=== PATIENT | male | born 1955 | race African-American/Black ===

== ENCOUNTER 2016-10-24 14:41 | Inpatient (IN) | payer OTHER ==
[2016-10-24 17:46] VITALS: BMI 33.7
--- NOTE | 2016-10-24 20:22 | HP ---
COWS - Scale Resting Pulse: 1= [place] 81-100 Sweatin= Chills/Flushing Restless Observation: 1= Difficult to Sit Still Pupil Size: 0= Normal to Room Light Bone or Joint Aches: 2= Severe Diffuse Aches Runny Nose/ Eye Tearin= Runny Nose/Eyes GI Upset > 30mins: 2= Nausea/Diarrhea Tremor Observation: 2= Slight Tremor Visible Yawning Observation: 1= 1-2x During Session Anxiety or Irritability: 2=Irritable/Anxious Goose Flesh Skin: 3=Piloerection COWS Score: 17 CIWA Score - CIWA Score Nausea/Vomitin Muscle Tremors: 2 Anxiety: 3 Agitation: 3 Paroxysmal Sweats: 3 Orientation: 0-Oriented Tacttile Disturbances: 1-Very Mild Itch/Numbness Auditory Disturbances: 0-None Visual Disturbances: 0-None Headache: 2-Mild CIWA-Ar Total Score: 16 Admission ROS BHS - HPI Chief Complaint: WITHDRAWAL SYMPTOMS Allergies/Adverse Reactions: Allergies Allergy/AdvReac Type Severity Reaction Status Date / Time No Known Allergies Allergy Verified 10/24/16 20:22 History of Present Illness: 61 Y.O. MAN WITH AN EXTENSIVE HISTORY OF DRUG AND ALCOHOL DEPENDENCE IS SEEKING DETOX. HE REPORTS NOT HAVING A SIGNIFICANT PERIOD OF SOBRIETY AND IS CURRENTLY ATTENDING AN OUTPATIENT METHADONE MAINTENANCE TREATMENT PROGRAM. Exam Limitations: No Limitations - Ebola screening Have you traveled outside of the country in the last 21 days: No Have you been sick,other than usual withdrawal symptoms: No - Review of Systems Constitutional: Chills, Diaphoresis, Loss of Appetite, Malaise, Night Sweats, Unintentional Wgt. Loss EENT: reports: Blurred Vision, Double Vision, Tearing, Nose Congestion Respiratory: reports: No Symptoms reported Cardiac: reports: No Symptoms Reported GI: reports: Diarrhea, Nausea, Poor Appetite, Abdominal cramping : reports: No Symptoms Reported Musculoskeletal: reports: No Symptoms Reported Integumentary: reports: No Symptoms Reported Neuro: reports: Tremors Endocrine: reports: No Symptoms Reported Hematology: reports: No Symptoms Reported Psychiatric: reports: Orientated x3, Anxious Other Systems: Reviewed and Negative Patient History - Patient Medical History Hx Anemia: No Hx Asthma: No Hx Chronic Obstructive Pulmonary Disease (COPD): No Hx Cancer: No Hx Cardiac Disorders: No Hx Congestive Heart Failure: No Hx Hypertension: Yes (NOT TAKING MEDS ) Hx Hypercholesterolemia: No Hx Pacemaker: No HX Cerebrovascular Accident: No Hx Seizures: No Hx Dementia: No Hx Diabetes: No Hx Gastrointestinal Disorders: No Hx Liver Disease: No Hx Genitourinary Disorders: No Hx Sexually Transmitted Disorders: No Hx Renal Disease (ESRD): No Hx Thyroid Disease: No Hx Human Immunodeficiency Virus (HIV): No Hx Hepatitis C: No Hx Depression: No Hx Suicide Attempt: No Hx Bipolar Disorder: No Hx Schizophrenia: No - Patient Surgical History Past Surgical History: Yes Hx Orthopedic Surgery: Yes (FX REPAIR OF LEFT FEMUR-1986) Anesthesia Reaction: No - PPD History Previous Implant?: No Results: NEEDS CXR PPD to be Administered?: No - Reproductive History Patient is a Female of Child Bearing Age (11 -55 yrs old): No - Smoking Cessation Smoking history: Current every day smoker Aproximately how many cigarettes per day: 10 Hx Chewing Tobacco Use: No Initiated information on smoking cessation: Yes 'Breaking Loose' booklet given: 10/24/16 - Substance & Tx. History Hx Alcohol Use: Yes Hx Substance Use: Yes Substance Use Type: Alcohol, Cocaine, Heroin Hx Substance Use Treatment: Yes (DETOX AND REHAB ) - Substances Abused Alcohol Route: Oral Frequency: Daily Amount used: 1-2 PINTS OF LIQUOR Age of first use: 42 Date of Last Use: 10/24/16 Heroin Route: Injection Frequency: Daily Amount used: $70 Age of first use: 35 Date of Last Use: 10/23/16 Cocaine Route: Smoking Frequency: 3-6 times per week Amount used: $100 Age of first use: 47 Date of Last Use: 10/23/16 Family Disease History - Family Disease History Family Disease History: Heart Disease: Mother (), CA: Father ( ) , Mother Admission Physical Exam [facility] - Vital Signs Vital Signs: Vital Signs - 24 hr 10/24/16 17:43 Temperature 98.3 F Pulse Rate 82 Respiratory 20 Rate Blood Pressure 151/97 - Physical General Appearance: Yes: Irritable, Sweating, Anxious HEENTM: Yes: Nasal Congestion Respiratory: Yes: Chest Non-Tender, Lungs Clear, Normal Breath Sounds, No Respiratory Distress, No Accessory Muscle Use Neck: Yes: No masses,lesions,Nodules, Trachea in good position Breast: Yes: Breast Exam Deferred Cardiology: Yes: Regular Rhythm, Regular Rate, S1, S2 Abdominal: Yes: Normal Bowel Sounds, Non Tender, Flat, Soft Genitourinary: Yes: Other (NO COMPLAINTS REPORTED) Back: Yes: Normal Inspection Musculoskeletal: Yes: full range of Motion, Gait Steady Extremities: Yes: Tremors Neurological: Yes: Fully Oriented, Alert Integumentary: Yes: Track Sanchez (RIGHT ARM) Lymphatic: Yes: Within Normal Limits - Diagnostic (1) Alcohol dependence with uncomplicated withdrawal Current Visit: Yes Status: Chronic (2) Opioid dependence on agonist therapy Current Visit: Yes Status: Chronic (3) Cocaine dependence, uncomplicated Current Visit: Yes Status: Chronic (4) Nicotine dependence Current Visit: Yes Status: Chronic (5) History of tuberculosis exposure Current Visit: Yes Status: Resolved Comment: REPORTS BEING TREATED WITH INH IN 1977. Cleared for Admission [facility] - Detox or Rehab [facility] Level of Care: Medically Managed Detox Regimen/Protocol: Librium [facility] Breath Alcohol Content Breath Alcohol Content: 0.006 Urine Drug Screen - Results Urine Drug Screen Results: THOMAS-Cocaine, OPI-Opiates, MTD-Methadone
[2016-10-24] MEDS ORDERED: NICOTINE POLACRILEX 2 MG GUM BC PRN (21:03)
[2016-10-24] MEDS ORDERED: MAGNESIUM CITRATE 300 ML BOTTLE PO PRN (21:03)
[2016-10-24] MEDS ORDERED: chlordiazePOXIDE HCL 25 MG CAPSULE PO ONE (21:03)
[2016-10-24] MEDS ORDERED: LOPERAMIDE HCL 2 MG CAPSULE PO PRN (21:03)
[2016-10-24] MEDS ORDERED: hydrOXYzine PAMOATE 50 MG CAPSULE (FP) PO PRN (21:03)
[2016-10-24] MEDS ORDERED: MENTHOL/PHENOL 1 EACH UD MM PRN (21:03)
[2016-10-24] MEDS ORDERED: guaiFENesin/D-METHORPHAN HB 10 ML UNIT-DOSE CUPS PO PRN (21:03)
[2016-10-24] MEDS ORDERED: ACETAMINOPHEN 325 MG TABLET (FP) PO PRN (21:03)
[2016-10-24] MEDS ORDERED: MAGNESIUM HYDROX 2400MG/30ML ORAL SUSPENSION 30 ML CUP PO PRN (21:03)
[2016-10-24] MEDS ORDERED: MAG HYDROX/AL HYDROX/SIMETH 30 ML UNIT-DOSE CUP PO PRN (21:03)
[2016-10-24] MEDS ORDERED: chlordiazePOXIDE HCL 25 MG CAPSULE PO PRN (21:03)
[2016-10-24] MEDS ORDERED: P-EPHED 60MG/TRIPROLIDI 2.5MG TABLET PO PRN (21:03)
[2016-10-24] MEDS ORDERED: diphenhydrAMINE HCL 50 MG CAPSULE PO PRN (21:03)
[2016-10-24] MEDS: THIAMINE HCL 100 MG TABLET (FP) PO SCH (22:55)
[2016-10-24] MEDS: chlordiazePOXIDE HCL 25 MG CAPSULE PO SCH (23:01)
[2016-10-24 23:06] LABS: URINE APPEARANCE CLEAR; URINE BILIRUBIN NEGATIVE (NEGATIVE); URINE BLOOD NEGATIVE (NEGATIVE); URINE COLOR YELLOW; URINE GLUCOSE (UA) NEGATIVE (NEGATIVE); URINE KETONE TRACE (NEGATIVE); URINE LEUK ESTERASE NEGATIVE (NEGATIVE); URINE NITRITE NEGATIVE (NEGATIVE); URINE PROTEIN TRACE (NEGATIVE); URINE UROBILINOGEN 0.2 E.U/dl E.U./dl (0.2-1.0)
[2016-10-25] MEDS: chlordiazePOXIDE HCL 25 MG CAPSULE PO SCH ×4 (05:29→22:11)
[2016-10-25] MEDS ORDERED: METHADONE HCL 40 MG DISPERSABLE TABLET PO ONE (08:26)
--- NOTE | 2016-10-25 09:54 | PN ---
[facility] CIWA - CIWA Score Nausea/Vomitin Muscle Tremors: 3 Anxiety: 3 Agitation: 3 Paroxysmal Sweats: 3 Orientation: 0-Oriented Tacttile Disturbances: 2-Mild Itch/Numbness/Burn Auditory Disturbances: 0-None Visual Disturbances: 0-None Headache: 0-None Present CIWA-Ar Total Score: 16 BHS COWS - Scale Resting Pulse: 0= [place] 80 or Below Sweatin=Flushed/Facial Moisture Restless Observation: 1= Difficult to Sit Still Pupil Size: 1= Pupils >than Normal Bone or Joint Aches: 2= Severe Diffuse Aches Runny Nose/ Eye Tearin= Nasal Congestion GI Upset > 30mins: 1= Stomach Cramp Tremor Observation of Outstretched Hands: 1= Tremor [place], Not Seen Yawning Observation: 1= 1-2x During Session Anxiety or Irritability: 2=Irritable/Anxious Goose Flesh Skin: 0=Smooth Skin COWS Score: 12 S Progress Note (SOAP) Subjective: sweats , shakes bodyaches , lbp Objective: 10/25/16 09:53 Vital Signs Temperature 96.7 F L 10/25/16 05:54 Pulse Rate 79 10/25/16 05:54 Respiratory Rate 18 10/25/16 05:54 Blood Pressure 123/79 10/25/16 05:54 O2 Sat by Pulse Oximetry (%) Laboratory Tests 10/24/16 22:21 Urine Color Yellow Urine Appearance Clear Urine pH 6.0 Ur Specific [place] >= 1.030 Urine Protein Trace H Urine Glucose (UA) Negative Urine Ketones Trace H Urine Blood Negative Urine Nitrite Negative Urine Bilirubin Negative Urine Urobilinogen 0.2 e.u/dl Ur Leukocyte Esterase Negative pending labs Assessment: 10/25/16 09:53 withdrawl sx's Plan: cont. detox increase fluids motrin prn
[2016-10-25 10:12] LABS: MCH 26.5 pg (25.7-33.7); MCHC 32.5 g/dl (32.0-35.9); MEAN CELL VOLUME 81.5 fl (80-96); MEAN PLT VOLUME 7.9 fl (7.5-11.1); PLATELET COUNT 174 K/MM3 (134-434); WHITE BLOOD COUNT 4.8 K/mm3 (4.0-10.0)
[2016-10-25 10:26] LABS: SGOT/AST 15 U/L (15-37); SGPT/ALT 15 U/L (12-78)
[2016-10-25 10:30] LABS: ALBUMIN 2.9 g/dl (3.4-5.0); ALK PHOS 94 U/L (45-117); ANION GAP 5 (8-16); BILIRUBIN,TOTAL 0.3 mg/dL (0.2-1.0); CALCIUM 8.4 mg/dL (8.5-10.1); CO2 29 mmol/L (21-32); GLUCOSE,RANDOM 95 mg/dL (74-106)
[2016-10-25] MEDS: NICOTINE 14 MG/24 HOURS TOPICAL PATCH TD SCH (10:58)
[2016-10-25] MEDS: PRENATAL VITAMINS W/ FOLIC ACID TABLET (FP) PO SCH (10:59)
--- NOTE | 2016-10-25 16:34 | EKG ---
Test Reason : Blood Pressure : / mmHG Vent. Rate : 079 BPM Atrial Rate : 079 BPM P-R Int : 164 ms QRS Dur : 086 ms QT Int : 396 ms P-R-T Axes : 071 055 024 degrees QTc Int : 454 ms NORMAL SINUS RHYTHM NONSPECIFIC T WAVE ABNORMALITY ABNORMAL ECG NO PREVIOUS ECGS AVAILABLE Confirmed by ARI MCCRAY, ALVARO ([id number]) on 10/25/2016 4:33:55 PM Referred By: Israel Jeffrey Confirmed By:ALVARO CHAPMAN MD
[2016-10-25] MEDS: THIAMINE HCL 100 MG TABLET (FP) PO SCH (22:11)
[2016-10-26] MEDS: chlordiazePOXIDE HCL 25 MG CAPSULE PO SCH ×3 (05:52→17:55)
[2016-10-26] MEDS: IBUPROFEN 400 MG TABLET (FP) PO PRN (05:54)
[2016-10-26] MEDS ORDERED: METHADONE HCL 40 MG DISPERSABLE TABLET PO ONE (09:34)
[2016-10-26] MEDS: PRENATAL VITAMINS W/ FOLIC ACID TABLET (FP) PO SCH (10:13)
[2016-10-26] MEDS: NICOTINE 14 MG/24 HOURS TOPICAL PATCH TD SCH (10:14)
--- NOTE | 2016-10-26 11:20 | PN ---
S CIWA - CIWA Score Nausea/Vomitin Muscle Tremors: 3 Anxiety: 2 Agitation: 2 Paroxysmal Sweats: 1-Minimal Palms Moist Orientation: 0-Oriented Tacttile Disturbances: 1-Very Mild Itch/Numbness Auditory Disturbances: 1-Very Mild Visual Disturbances: 1-Very Mild Sensitivity Headache: 2-Mild CIWA-Ar Total Score: 16 S Progress Note (SOAP) Subjective: ALERT,IRRITABLE,ANXIOUS,INTERRUPTED SLEEP Objective: 10/26/16 11:18 Vital Signs Temperature 98.2 F 10/26/16 10:06 Pulse Rate 77 10/26/16 10:06 Respiratory Rate 18 10/26/16 10:06 Blood Pressure 155/97 10/26/16 10:06 O2 Sat by Pulse Oximetry (%) 10/26/16 11:18 Laboratory Last Values WBC 4.8 K/mm3 (4.0-10.0) 10/25/16 06:30 RBC 4.84 M/mm3 (4.00-5.60) 10/25/16 06:30 Hgb 12.8 GM/dL (11.7-16.9) 10/25/16 06:30 Hct 39.5 % (35.4-49) 10/25/16 06:30 MCV 81.5 fl (80-96) 10/25/16 06:30 MCHC 32.5 g/dl (32.0-35.9) 10/25/16 06:30 RDW 15.0 % (11.9-15.9) 10/25/16 06:30 Plt Count 174 K/MM3 (134-434) 10/25/16 06:30 MPV 7.9 fl (7.5-11.1) 10/25/16 06:30 Sodium 141 mmol/L (136-145) 10/25/16 06:30 Potassium 3.8 mmol/L (3.5-5.1) 10/25/16 06:30 Chloride 107 mmol/L (98-107) 10/25/16 06:30 Carbon Dioxide 29 mmol/L (21-32) 10/25/16 06:30 Anion Gap 5 (8-16) L 10/25/16 06:30 BUN 14 mg/dL (7-18) 10/25/16 06:30 Creatinine 1.0 mg/dL (0.7-1.3) 10/25/16 06:30 Creat Clearance w eGFR > 60 (>60) 10/25/16 06:30 Random Glucose 95 mg/dL (74-106) 10/25/16 06:30 Calcium 8.4 mg/dL (8.5-10.1) L 10/25/16 06:30 Total Bilirubin 0.3 mg/dL (0.2-1.0) 10/25/16 06:30 AST 15 U/L (15-37) 10/25/16 06:30 ALT 15 U/L (12-78) 10/25/16 06:30 Alkaline Phosphatase 94 U/L (45-117) 10/25/16 06:30 Total Protein 7.0 g/dl (6.4-8.2) 10/25/16 06:30 Albumin 2.9 g/dl (3.4-5.0) L 10/25/16 06:30 Urine Color Yellow 10/24/16 22:21 Urine Appearance Clear 10/24/16 22:21 Urine pH 6.0 (5.0-8.0) 10/24/16 22:21 Ur Specific [place] >= 1.030 (1.001-1.035) 10/24/16 22:21 Urine Protein Trace (NEGATIVE) H 10/24/16 22:21 Urine Glucose (UA) Negative (NEGATIVE) 10/24/16 22:21 Urine Ketones Trace (NEGATIVE) H 10/24/16 22:21 Urine Blood Negative (NEGATIVE) 10/24/16 22:21 Urine Nitrite Negative (NEGATIVE) 10/24/16 22:21 Urine Bilirubin Negative (NEGATIVE) 10/24/16 22:21 Urine Urobilinogen 0.2 e.u/dl E.U./dl (0.2-1.0) 10/24/16 22:21 Ur Leukocyte Esterase Negative (NEGATIVE) 10/24/16 22:21 RPR Titer Nonreactive (NONREACTIVE) 10/25/16 06:30 Assessment: 10/26/16 11:19 WITHDRAWAL SYMPTOM Plan: CONTINUE DETOX
[2016-10-26] MEDS: chlordiazePOXIDE 5 MG CAPSULE PO SCH (22:39)
[2016-10-26] MEDS: THIAMINE HCL 100 MG TABLET (FP) PO SCH (22:39)
[2016-10-27] MEDS: chlordiazePOXIDE 5 MG CAPSULE PO SCH ×3 (05:56→18:22)
[2016-10-27] MEDS: METHADONE HCL 40 MG DISPERSABLE TABLET PO SCH (05:58)
[2016-10-27] MEDS ORDERED: METHADONE HCL 40 MG DISPERSABLE TABLET PO ONE (06:47)
[2016-10-27] MEDS: NICOTINE 14 MG/24 HOURS TOPICAL PATCH TD SCH (11:30)
[2016-10-27] MEDS: PRENATAL VITAMINS W/ FOLIC ACID TABLET (FP) PO SCH (11:30)
--- NOTE | 2016-10-27 12:20 | PN ---
S Progress Note (SOAP) Subjective: ALERT,IRRITABLE,ANXIOUS,INTERRUPTED SLEEP Objective: 10/27/16 12:20 Vital Signs Temperature 97.9 F 10/27/16 10:27 Pulse Rate 85 10/27/16 10:27 Respiratory Rate 18 10/27/16 10:27 Blood Pressure 159/94 10/27/16 10:27 O2 Sat by Pulse Oximetry (%) Assessment: 10/27/16 12:20 WITHDRAWAL SYMPTOM Plan: CONTINUE DETOX
[2016-10-27] MEDS: THIAMINE HCL 100 MG TABLET (FP) PO SCH (22:34)
[2016-10-27] MEDS: chlordiazePOXIDE HCL 10 MG CAPSULE PO SCH (22:34)
[2016-10-27] MEDS: IBUPROFEN 400 MG TABLET (FP) PO PRN (22:36)
[2016-10-28] MEDS: METHADONE HCL 40 MG DISPERSABLE TABLET PO SCH (06:04)
[2016-10-28] MEDS: chlordiazePOXIDE HCL 10 MG CAPSULE PO SCH (06:06)
[2016-10-28 07:09] VITALS: BP 143/96; PULSE 77; TEMP 97.9
--- NOTE | 2016-10-28 09:14 | PN ---
S Progress Note (SOAP) Subjective: ALERT,NO COMPLAINT Objective: 10/28/16 09:13 Vital Signs Temperature 97.9 F 10/28/16 06:00 Pulse Rate 77 10/28/16 06:00 Respiratory Rate 18 10/28/16 06:00 Blood Pressure 143/96 10/28/16 06:00 O2 Sat by Pulse Oximetry (%) Assessment: 10/28/16 09:13 DETOX COMPLETED,NO WITHDRAWAL SYMPTOM Plan: DISCHARGE TODAY,FOLLOW UP WITH AFTER CARE PROGRAM ARRANGEMENT
--- NOTE | 2016-10-28 09:16 | DS ---
[facility] Detox Discharge Summary Admission Date: 10/24/16 Discharge Date: 10/28/16 - History Present History: Alcohol Dependence, Cocaine Dependence, MMTP Additional Comments: FOLLOW UP WITH AFTER CARE PROGRAM ARRANGEMENT Pertinent Past History: NICOTINE DEPENDENCE POSITIVE PPD - Physical Exam Results Vital Signs: Vital Signs Temperature 97.9 F 10/28/16 06:00 Pulse Rate 77 10/28/16 06:00 Respiratory Rate 18 10/28/16 06:00 Blood Pressure 143/96 10/28/16 06:00 O2 Sat by Pulse Oximetry (%) Pertinent Admission Physical Exam Findings: WITHDRAWAL SYMPTOM - Treatment Hospital Course: Detox Protocol Followed, Detoxed Safely, Responded well, Discharged Condition Good Patient has Accepted a Rehab Referral to: DECLINED - Medication Discharge Medications: Ambulatory Orders NK [No Known Home Medication] 10/24/16 - AMA Did Patient Leave Against Medical Advice: No
== END 2016-10-28 10:10 | disposition home or self-care (01) | DRG 773 ==
LOC: YASAS 14:41 → Y6N 20:06
PROVIDERS: ADMIT Internal Medicine Addiction Medicine; ATTEND Internal Medicine Addiction Medicine
PROC: HZ2ZZZZ Detoxification Services for Substance Abuse Treatment (ICD-10-PCS; principal; 2016-10-24)
DX: F10.230 Alcohol dependence with withdrawal, uncomplicated (principal); F11.23 Opioid dependence with withdrawal; F14.20 Cocaine dependence, uncomplicated; F17.210 Nicotine dependence, cigarettes, uncomplicated; I10 Essential (primary) hypertension; R76.11 Nonspecific reaction to tuberculin skin test without active tuberculosis
CPT/HCPCS: 36415; 71020-TC; 80053; 81003; 85027; 86593; 93005; 93010

== ENCOUNTER 2021-03-08 15:06 | Inpatient (IN) | payer OTHER ==
[2021-03-08 16:21] VITALS: BMI 36.9
[2021-03-08] MEDS ORDERED: MAG HYDROX/AL HYDROX/SIMETH 30 ML UNIT-DOSE CUP PO PRN (18:57)
[2021-03-08] MEDS ORDERED: LORazepam 1 MG TABLET PO PRN (18:57)
[2021-03-08] MEDS ORDERED: MENTHOL/PHENOL 1 EACH UD MM PRN (18:57)
[2021-03-08] MEDS ORDERED: BISMUTH SUBSALICYLATE 524 MG/30 ML PO PRN (18:57)
[2021-03-08] MEDS ORDERED: ONDANSETRON *ODT* 4 MG TABLET SL PRN (18:57)
[2021-03-08] MEDS ORDERED: hydrOXYzine PAMOATE 25 MG CAPSULE (FP) PO PRN (18:57)
[2021-03-08] MEDS ORDERED: MAGNESIUM CITRATE 300 ML BOTTLE PO PRN (18:57)
[2021-03-08] MEDS ORDERED: ACETAMINOPHEN 325 MG TABLET (FP) PO PRN ×2 (18:57)
[2021-03-08] MEDS ORDERED: NICOTINE POLACRILEX 2 MG GUM BUC PRN (18:57)
[2021-03-08] MEDS ORDERED: METHOCARBAMOL 500 MG TABLET PO PRN (18:57)
[2021-03-08] MEDS ORDERED: IBUPROFEN 400 MG TABLET (FP) PO PRN (18:57)
[2021-03-08] MEDS ORDERED: MAGNESIUM HYDROX 2400MG/30ML ORAL SUSPENSION 30 ML CUP PO PRN (18:57)
[2021-03-08] MEDS: CLOTRIMAZOLE 1% CREAM 15 GM TUBE TP SCH (22:18)
[2021-03-08] MEDS: LORazepam 2 MG TABLET PO SCH (22:18)
[2021-03-08] MEDS: THIAMINE HCL 100 MG TABLET (FP) PO SCH (22:18)
[2021-03-08] MEDS: MELATONIN 5 MG TABLETS PO SCH (22:18)
[2021-03-09] MEDS: LORazepam 2 MG TABLET PO SCH ×4 (06:44→22:35)
[2021-03-09] MEDS ORDERED: METHADONE HCL 10 MG TABLET PO ONE (08:44)
[2021-03-09] MEDS ORDERED: METHADONE 120 MG, METHADONE 30 MG PO ONE (08:50)
[2021-03-09] MEDS ORDERED: METHADONE HCL 10 MG TABLET ONE (08:54)
[2021-03-09] MEDS ORDERED: METHADONE HCL 40 MG DISPERSABLE TABLET ONE (08:54)
[2021-03-09 10:01] LABS: CALCIUM 8.1 mg/dL (8.5-10.1); HEMATOCRIT 39.4 % (35.4-49); HEMOGLOBIN 12.9 GM/dL (11.7-16.9); MCH 27.7 pg (25.7-33.7); MCHC 32.9 g/dl (32.0-35.9); MEAN CELL VOLUME 84.3 fl (80-96); MEAN PLT VOLUME 8.2 fl (7.5-11.1); PLATELET COUNT 172 K/MM3 (134-434); RBC 4.68 M/mm3 (4.00-5.60); RDW 15.8 % (11.9-15.9); WHITE BLOOD COUNT 3.6 K/mm3 (4.0-10.0)
[2021-03-09 10:02] LABS: ALBUMIN 3.2 g/dl (3.4-5.0); BLOOD UREA NITROGEN 19.7 mg/dL (7-18)
[2021-03-09 10:07] LABS: BILIRUBIN,TOTAL 0.3 mg/dL (0.2-1); TOT PROT 7.6 g/dl (6.4-8.2)
[2021-03-09] MEDS: CLOTRIMAZOLE 1% CREAM 15 GM TUBE TP SCH ×2 (12:25→22:33)
[2021-03-09] MEDS: NICOTINE 14 MG/24 HOURS TOPICAL PATCH TD SCH (12:25)
[2021-03-09] MEDS: PRENATAL VITAMINS W/ FOLIC ACID TABLET (FP) PO SCH (12:26)
[2021-03-09] MEDS ORDERED: MASKS NR ONE (12:30)
[2021-03-09] MEDS ORDERED: cloNIDine HCL 0.1 MG TABLET PO ONE (14:01)
[2021-03-09] MEDS: THIAMINE HCL 100 MG TABLET (FP) PO SCH (22:34)
[2021-03-09] MEDS: MELATONIN 5 MG TABLETS PO SCH (22:34)
[2021-03-10] MEDS ORDERED: METHADONE HCL 40 MG DISPERSABLE TABLET ONE (04:39)
[2021-03-10] MEDS ORDERED: METHADONE HCL 10 MG TABLET ONE (04:39)
[2021-03-10] MEDS: METHADONE 120 MG, METHADONE 30 MG PO SCH (05:50)
[2021-03-10] MEDS: LORazepam 1 MG TABLET PO SCH ×4 (05:52→22:21)
[2021-03-10] MEDS ORDERED: METHADONE HCL 40 MG DISPERSABLE TABLET PO SCH (06:00)
[2021-03-10] MEDS: PRENATAL VITAMINS W/ FOLIC ACID TABLET (FP) PO SCH (10:25)
[2021-03-10] MEDS: CLOTRIMAZOLE 1% CREAM 15 GM TUBE TP SCH ×2 (10:26→22:23)
[2021-03-10] MEDS: NICOTINE 14 MG/24 HOURS TOPICAL PATCH TD SCH (10:26)
[2021-03-10] MEDS: MELATONIN 5 MG TABLETS PO SCH (22:21)
[2021-03-10] MEDS: THIAMINE HCL 100 MG TABLET (FP) PO SCH (22:21)
[2021-03-11] MEDS ORDERED: LORazepam 0.5 MG TABLET PO PRN
[2021-03-11] MEDS ORDERED: METHADONE HCL 10 MG TABLET ONE (04:38)
[2021-03-11] MEDS ORDERED: METHADONE HCL 40 MG DISPERSABLE TABLET ONE (04:39)
[2021-03-11] MEDS: METHADONE 120 MG, METHADONE 30 MG PO SCH (05:53)
[2021-03-11] MEDS: LORazepam 0.5 MG TABLET PO SCH ×4 (05:59→22:15)
[2021-03-11 10:07] LABS: SARS-CoV-2 NAA Not Detected (Not Detected)
[2021-03-11] MEDS: PRENATAL VITAMINS W/ FOLIC ACID TABLET (FP) PO SCH (10:43)
[2021-03-11] MEDS: NICOTINE 14 MG/24 HOURS TOPICAL PATCH TD SCH (10:44)
[2021-03-11] MEDS: CLOTRIMAZOLE 1% CREAM 15 GM TUBE TP SCH ×2 (10:44→21:50)
[2021-03-11] MEDS: THIAMINE HCL 100 MG TABLET (FP) PO SCH (21:50)
[2021-03-11] MEDS: MELATONIN 5 MG TABLETS PO SCH (21:50)
[2021-03-12 01:46] LABS: PH,URINE 7.5 (5.0-8.0); URINE APPEARANCE CLEAR; URINE BILIRUBIN NEGATIVE (NEGATIVE); URINE COLOR YELLOW; URINE GLUCOSE (UA) NEGATIVE (NEGATIVE); URINE KETONE TRACE (NEGATIVE); URINE LEUK ESTERASE NEGATIVE (NEGATIVE); URINE NITRITE NEGATIVE (NEGATIVE); URINE PROTEIN NEGATIVE (NEGATIVE); URINE UROBILINOGEN 0.2 mg/dL (0.2-1.0)
[2021-03-12] MEDS ORDERED: METHADONE HCL 40 MG DISPERSABLE TABLET ONE (04:21)
[2021-03-12] MEDS ORDERED: METHADONE HCL 10 MG TABLET ONE (04:21)
[2021-03-12] MEDS ORDERED: LORazepam 0.5 MG TABLET PO ONE (05:00)
[2021-03-12] MEDS: METHADONE 120 MG, METHADONE 30 MG PO SCH (05:21)
[2021-03-12] MEDS ORDERED: cloNIDine HCL 0.1 MG TABLET PO ONE (07:25)
[2021-03-12 07:28] VITALS: BP 176/107; PULSE 71
[2021-03-12 07:30] VITALS: TEMP 95.8
== END 2021-03-12 10:03 | disposition home or self-care (01) | DRG 773 ==
LOC: YASAS 15:06 → Y3N 17:51
PROVIDERS: ADMIT Allergy & Immunology; ATTEND Allergy & Immunology
PROC: HZ2ZZZZ Detoxification Services for Substance Abuse Treatment (ICD-10-PCS; principal; 2021-03-08)
DX: F10.230 Alcohol dependence with withdrawal, uncomplicated (principal); F11.20 Opioid dependence, uncomplicated; F14.20 Cocaine dependence, uncomplicated; F17.210 Nicotine dependence, cigarettes, uncomplicated; F10.280 Alcohol dependence with alcohol-induced anxiety disorder; F40.240 Claustrophobia; I10 Essential (primary) hypertension; K21.9 Gastro-esophageal reflux disease without esophagitis; E66.9 Obesity, unspecified; Z68.36 Body mass index [BMI] 36.0-36.9, adult; Z62.810 Personal history of physical and sexual abuse in childhood; Z87.81 Personal history of (healed) traumatic fracture
CPT/HCPCS: 36415; 71046-TC-FY; 80053; 81003; 85027; 86780; 93005; 93010; C9803; J0735; U0003; U0005

== ENCOUNTER 2021-04-21 12:35 | Inpatient (IN) | payer OTHER ==
[2021-04-21 14:36] VITALS: BMI 37.5
[2021-04-21] MEDS ORDERED: MAG HYDROX/AL HYDROX/SIMETH 30 ML UNIT-DOSE CUP PO PRN (16:38)
[2021-04-21] MEDS ORDERED: NICOTINE POLACRILEX 2 MG GUM BC PRN (16:38)
[2021-04-21] MEDS ORDERED: ACETAMINOPHEN 325 MG TABLET (FP) PO PRN (16:38)
[2021-04-21] MEDS ORDERED: MAGNESIUM CITRATE 300 ML BOTTLE PO PRN (16:38)
[2021-04-21] MEDS ORDERED: MAGNESIUM HYDROX 2400MG/30ML ORAL SUSPENSION 30 ML CUP PO PRN (16:38)
[2021-04-21] MEDS ORDERED: P-EPHED 60MG/TRIPROLIDI 2.5MG TABLET PO PRN (16:38)
[2021-04-21] MEDS ORDERED: guaiFENesin 200 MG/10 ML 10 ML UNIT-DOSE CUPS PO PRN (16:38)
[2021-04-21] MEDS ORDERED: LOPERAMIDE HCL 2 MG CAPSULE PO PRN (16:38)
[2021-04-21] MEDS ORDERED: cloNIDine HCL 0.1 MG TABLET PO ONE (16:44)
[2021-04-21] MEDS: IBUPROFEN 400 MG TABLET (FP) PO PRN (18:52)
[2021-04-21] MEDS: amLODIPine BESYLATE 10 MG TABLET (FP) PO SCH (18:52)
[2021-04-21 20:19] VITALS: TEMP 97.3
[2021-04-21] MEDS: MELATONIN 5 MG TABLETS PO SCH (21:14)
[2021-04-21] MEDS: THIAMINE HCL 100 MG TABLET (FP) PO SCH (21:14)
[2021-04-22] MEDS ORDERED: methaDONE HCL 10 MG TABLET PO SCH (09:30)
[2021-04-22] MEDS ORDERED: methaDONE HCL 10 MG TABLET ONE (11:29)
[2021-04-22] MEDS: amLODIPine BESYLATE 10 MG TABLET (FP) PO SCH (11:30)
[2021-04-22] MEDS ORDERED: methaDONE HCL 40 MG DISPERSABLE TABLET ONE (11:30)
[2021-04-22] MEDS: TAMSULOSIN HCL 0.4 MG CAP PO SCH (11:30)
[2021-04-22] MEDS: HYDROCHLOROTHIAZIDE 25 MG TABLET (FP) PO SCH (11:30)
[2021-04-22] MEDS: PRENATAL VITAMINS W/ FOLIC ACID TABLET (FP) PO SCH (11:31)
[2021-04-22] MEDS: THIAMINE HCL 100 MG TABLET (FP) PO SCH (21:24)
[2021-04-22] MEDS: MELATONIN 5 MG TABLETS PO SCH (21:24)
[2021-04-23] MEDS ORDERED: methaDONE HCL 40 MG DISPERSABLE TABLET ONE (06:05)
[2021-04-23] MEDS ORDERED: methaDONE HCL 10 MG TABLET ONE (06:05)
[2021-04-23] MEDS: TAMSULOSIN HCL 0.4 MG CAP PO SCH (08:37)
[2021-04-23] MEDS: PRENATAL VITAMINS W/ FOLIC ACID TABLET (FP) PO SCH (10:02)
[2021-04-23] MEDS: HYDROCHLOROTHIAZIDE 25 MG TABLET (FP) PO SCH (10:03)
[2021-04-23] MEDS: amLODIPine BESYLATE 10 MG TABLET (FP) PO SCH (10:03)
[2021-04-23] MEDS: MELATONIN 5 MG TABLETS PO SCH (22:59)
[2021-04-23] MEDS: THIAMINE HCL 100 MG TABLET (FP) PO SCH (22:59)
[2021-04-24] MEDS ORDERED: methaDONE HCL 10 MG TABLET ONE (06:20)
[2021-04-24] MEDS ORDERED: methaDONE HCL 40 MG DISPERSABLE TABLET ONE (06:21)
[2021-04-24] MEDS: TAMSULOSIN HCL 0.4 MG CAP PO SCH (07:45)
[2021-04-24] MEDS ORDERED: PT OWN MED DRAWER 7, Y5N ONE (08:43)
[2021-04-24] MEDS: PRENATAL VITAMINS W/ FOLIC ACID TABLET (FP) PO SCH (09:37)
[2021-04-24] MEDS: HYDROCHLOROTHIAZIDE 25 MG TABLET (FP) PO SCH (09:37)
[2021-04-24] MEDS: amLODIPine BESYLATE 10 MG TABLET (FP) PO SCH (09:37)
[2021-04-24 10:21] LABS: ALBUMIN 3.1 g/dl (3.4-5.0); CALCIUM 8.8 mg/dL (8.5-10.1); HEMATOCRIT 42.7 % (35.4-49); HEMOGLOBIN 13.7 GM/dL (11.7-16.9); MCH 26.8 pg (25.7-33.7); MEAN CELL VOLUME 83.5 fl (80-96); MEAN PLT VOLUME 8.2 fl (7.5-11.1); PLATELET COUNT 232 10^3/uL (134-434); RBC 5.11 M/mm3 (4.00-5.60); RDW 15.4 % (11.9-15.9)
[2021-04-24 10:22] LABS: BLOOD UREA NITROGEN 12.4 mg/dL (7-18)
[2021-04-24 10:26] LABS: BILIRUBIN,TOTAL 0.4 mg/dL (0.2-1); TOT PROT 8.8 g/dl (6.4-8.2)
[2021-04-24] MEDS: THIAMINE HCL 100 MG TABLET (FP) PO SCH (23:18)
[2021-04-24] MEDS: MELATONIN 5 MG TABLETS PO SCH (23:18)
[2021-04-25] MEDS ORDERED: methaDONE HCL 10 MG TABLET ONE (06:14)
[2021-04-25] MEDS ORDERED: methaDONE HCL 40 MG DISPERSABLE TABLET ONE (06:15)
[2021-04-25] MEDS ORDERED: PT OWN MED DRAWER 7, Y5N ONE (09:03)
[2021-04-25 09:13] VITALS: BP 134/79; PULSE 96
[2021-04-25] MEDS: HYDROCHLOROTHIAZIDE 25 MG TABLET (FP) PO SCH (09:48)
[2021-04-25] MEDS: amLODIPine BESYLATE 10 MG TABLET (FP) PO SCH (09:49)
[2021-04-25] MEDS: TAMSULOSIN HCL 0.4 MG CAP PO SCH (09:49)
[2021-04-25] MEDS: PRENATAL VITAMINS W/ FOLIC ACID TABLET (FP) PO SCH (09:49)
[2021-04-25] MEDS: IBUPROFEN 400 MG TABLET (FP) PO PRN (10:23)
== END 2021-04-25 11:10 | disposition home or self-care (01) | DRG 772 ==
LOC: YASAS 12:35 → Y3E 17:26
PROVIDERS: ADMIT Allergy & Immunology; ATTEND Allergy & Immunology
PROC: HZ42ZZZ Group Counseling for Substance Abuse Treatment, Cognitive-Behavioral (ICD-10-PCS; principal; 2021-04-21)
DX: F14.20 Cocaine dependence, uncomplicated (principal); F10.20 Alcohol dependence, uncomplicated; F11.20 Opioid dependence, uncomplicated; F41.9 Anxiety disorder, unspecified; I10 Essential (primary) hypertension; K21.9 Gastro-esophageal reflux disease without esophagitis; B18.2 Chronic viral hepatitis C; Z87.11 Personal history of peptic ulcer disease
CPT/HCPCS: 36415; 80053; 85027; C9803; U0003; U0005